=== PATIENT | male | born 1965 | race African-American/Black ===

== ENCOUNTER 2024-04-12 14:19 | Emergency (ER) | payer MEDICAID ==
[~2024-04-12] VITALS: Ht 175.3 cm; Wt 90.0 kg
[2024-04-12 14:34] VITALS: O2SAT 98
[2024-04-12] MEDS: TETRACAINE 0.5% OPHTH DROPS 4ML LEFTEYE ONE (15:26)
[2024-04-12] MEDS: FLUORESCEIN SODIUM 1MG/STRIP LEFTEYE ONE (16:01)
[2024-04-12 16:45] VITALS: BP 114/73; PULSE 81; RESP 17; TEMP 36.78072; O2SAT 99
== END 2024-04-12 17:09 | disposition home or self-care (01) ==
LOC: ER 14:58
DX: H10.212 Acute toxic conjunctivitis, left eye (principal)
CPT/HCPCS: 99283